=== PATIENT | male | born 1965 | race African-American/Black ===

== ENCOUNTER 2017-12-17 10:42 | Outpatient (CLI) | payer BC | END 2017-12-17 10:43 | disposition home or self-care (01) | LOC: BICULT 10:42 | PROVIDERS: ATTEND Internal Medicine Nephrology | DX: N18.3 Chronic kidney disease, stage 3 (moderate) (principal) | CPT/HCPCS: 76770 ==

== ENCOUNTER 2020-02-10 17:53 | Emergency (ER) | payer BC ==
[~2020-02-10 17:53] MED LIST: Iopamidol-370 76% 500 ML 1 ML ONE
[2020-02-10] MEDS ORDERED: Ondansetron PF 4 MG/2 ML Vial ONE (19:05)
[2020-02-10] MEDS ORDERED: Pantoprazole 40 MG VIAL ONE (19:05)
--- NOTE | 2020-02-10 19:12 | RAD ---
Exam: Chest one view HISTORY:Nausea. Vomiting. Comparison: 11/17/2006 FINDINGS: Cardiac silhouette: Normal Aorta: Unremarkable Pulmonary vessels: Normal Costophrenic angles: Clear LUNGS: No masses or consolidation. Pneumothorax: None Osseous abnormalities: None IMPRESSION: No acute cardiopulmonary process.
[2020-02-10 19:17] LABS: #Basophils 0.1 thou/uL (0.0-0.2); #Eosinphils 0.1 thou/uL (0.0-0.7); #Lymphocytes 1.8 thou/uL (1.20-3.40); #Monocytes 0.5 thou/uL (0.11-0.59); #Neutrophils 2.3 thou/uL (1.40-6.50); %Basophils 1.3 % (0.0-1.0); %Eosinophils 2.4 % (0.0-10.0); %Lymphocytes 37.5 % (21.0-51.0); %Neutrophils 47.9 % (42.0-75.0); Hemoglobin 12.3 g/dL (14.0-18.0); Mean Corpuscular HGB CONC 34.2 g/dL (32.0-36.0); Mean Corpuscular Hemoglobin 32.7 pg (27.0-31.0); Mean Corpuscular Volume 95.4 fL (78.0-98.0); Mean Platelet Volume 8.4 fL (7.4-10.4); Platelet Count 193 thou/uL (130-400); RBC Distribution Width 11.9 % (11.5-14.5); Red Blood Cell (RBC) Count 3.76 mill/uL (4.70-6.10); White Blood Cell (WBC) Count 4.9 thou/uL (4.8-10.8)
[2020-02-10 19:40] LABS: ALT (SGPT) 38 U/L (8-55); AST (SGOT) 75 U/L (5-34); Albumin 4.2 g/dL (3.5-5.0); Alcohol 45 mg/dL (Less than 10); Alkaline Phosphatase 44 U/L (40-110); Anion Gap 26 mmol/L (10-20); BUN (Urea Nitrogen) 11 mg/dL (8.4-25.7); Bilirubin, Total 0.8 mg/dL (0.2-1.2); CK (CPK) 342 U/L (30-200); Calc. Creatinine Clearance 0 mL/min (70-130); Calcium 9.5 mg/dL (7.8-10.44); Carbon Dioxide 18 mmol/L (22-29); Chloride 92 mmol/L (98-107); Estimated GFR-MDRD 53; Globulin 3.2 g/dL (2.4-3.5); Glucose 73 mg/dL (70-105); Lipase 206 U/L (8-78); Magnesium 1.6 mg/dL (1.6-2.6); Potassium 4.3 mmol/L (3.5-5.1); Protein, Total 7.4 g/dL (6.0-8.3); Sodium 132 mmol/L (136-145)
[2020-02-10 20:03] LABS: Bilirubin 1+ (Negative); Blood, Urine Negative (Negative); Clarity Clear (Clear); Glucose, Urine (Dipstick) Normal (Negative); Ketone, Urine 60 mg/dL (Negative); Leukocyte Negative Leu/uL (Negative); Nitrite Negative (Negative); Protein, Urine (Dipstick) 20 mg/dL (Neg-Trace); Specific Gravity, Urine 1.019 (1.002-1.036); Urobilinogen 3 mg/dL (Less than 2); pH, Urine 5.5 (5.0-9.0)
--- NOTE | 2020-02-10 20:26 | CT ---
EXAM: CT ABDOMEN AND PELVIS HISTORY: Vomiting. Pain. COMPARISON: None. Procedure: Multiple contiguous axial images were obtained and a CT of the abdomen and pelvis with IV contrast. C oronal reformats were performed. FINDINGS: Lower Chest: Scar and atelectasis, minimal Vessels: Normal caliber aorta. No periaortic fat stranding Heart: Normal heart size. No significant pericardial fluid Abdomen: Portal vein:Patent Gallbladder: No calcified gallstones. Normal caliber wall. Liver: Heterogeneous attenuation of the liver. There is hypoattenuation scattered throughout the hepa tic parenchyma with preservation of the vasculature suggesting areas of fatty infiltration. No enhancing liver masses. Pancreas: within normal limits. Spleen: within normal limits. Adrenals: within normal limits. Kidneys: Symmetric enhancement. No obstructive uropathy. Subcentimeter hypodensity in the lower pole of the left kidney is too small to further characterize. Peritoneum: No ascites or free air, no fluid collection. Bowel: Limited evaluation due to the lack of oral contrast administration. No evidence of bowel obstr uction. Ileocecal junction is unremarkable. Normal caliber appendix. Scattered fecal material in a nondistended, nondilated colon. Diverticulosis, without evidence of diverticulitis. Mesentery and Retroperitoneum: No enlarged mesenteric or retroperitoneal lymph nodes. Abdominal Wall: Small umbilical hernia containing mesenteric fat Pelvis: Reproductive Organs: Reproductive organs are unremarkable. Pelvis: No mass, lymphadenopathy, free air or free fluid. Bladder: within normal limits. Bones: No lytic or blastic lesions in the osseous structures. 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 IMPRESSION: 1. No acute abnormality in the abdomen or pelvis 2. Fatty infiltration of the liver with additional areas of fatty sparing.
== END 2020-02-10 22:09 | disposition home or self-care (01) ==
LOC: ERS 17:53
DX: K29.20 Alcoholic gastritis without bleeding (principal); E86.0 Dehydration; I10 Essential (primary) hypertension; Z79.899 Other long term (current) drug therapy
CPT/HCPCS: 36416; 71045; 74177; 80053; 80307; 81003; 82550; 83605; 83690; 83735; 84484; 85025; 93005; 96361; 96365; 96375; C9113; J2405; J3411; Q9967

== ENCOUNTER 2020-11-05 17:05 | Inpatient (IN) | payer BC ==
[2020-11-05] MEDS ORDERED: Fentanyl 100 MCG/2 ML VIAL ONE (17:34)
[2020-11-05] MEDS ORDERED: Ondansetron PF 4 MG/2 ML Vial ONE (17:34)
[2020-11-05] MEDS ORDERED: Piperacillin/Tazobactam 3.375 GM VIAL ONE (17:34)
[2020-11-05 17:44] LABS: #Basophils 0.1 thou/uL (0.0-0.2); #Eosinphils 0.1 thou/uL (0.0-0.7); #Lymphocytes 1.4 thou/uL (1.20-3.40); #Monocytes 0.8 thou/uL (0.11-0.59); #Neutrophils 7.3 thou/uL (1.40-6.50); %Basophils 0.6 % (0.0-1.0); %Eosinophils 1.2 % (0.0-10.0); %Lymphocytes 13.9 % (21.0-51.0); %Monocytes 8.3 % (0.0-10.0); Hemoglobin 11.8 g/dL (14.0-18.0); Mean Corpuscular HGB CONC 33.7 g/dL (32.0-36.0); Mean Corpuscular Hemoglobin 32.2 pg (27.0-31.0); Mean Corpuscular Volume 95.4 fL (78.0-98.0); Mean Platelet Volume 9.3 fL (7.4-10.4); Platelet Count 147 thou/uL (130-400); RBC Distribution Width 11.9 % (11.5-14.5); Red Blood Cell (RBC) Count 3.68 mill/uL (4.70-6.10); White Blood Cell (WBC) Count 9.7 thou/uL (4.8-10.8)
[2020-11-05 18:34] LABS: ALT (SGPT) 92 U/L (8-55); AST (SGOT) 261 U/L (5-34); Alkaline Phosphatase 131 U/L (40-110); Anion Gap 24 mmol/L (10-20); BUN (Urea Nitrogen) 19 mg/dL (8.4-25.7); Bilirubin, Total 1.3 mg/dL (0.2-1.2); Calc. Creatinine Clearance 0 mL/min (70-130); Carbon Dioxide 23 mmol/L (22-29); Chloride 93 mmol/L (98-107); Globulin 3.4 g/dL (2.4-3.5); Glucose 92 mg/dL (70-105); Magnesium 1.6 mg/dL (1.6-2.6); Potassium 4.3 mmol/L (3.5-5.1); Protein, Total 7.4 g/dL (6.0-8.3); Sodium 136 mmol/L (136-145)
[2020-11-05 18:47] LABS: Lipase 1447 U/L (8-78)
[2020-11-05] MEDS ORDERED: Ketorolac Tromethamine 30 MG/ML VIAL IVP PRN (20:38)
[2020-11-05] MEDS ORDERED: Morphine 4 MG/ML VIAL SLOW IVP PRN (20:38)
[2020-11-05] MEDS ORDERED: Ondansetron ODT 4 MG TAB PO PRN (20:39)
[2020-11-05] MEDS ORDERED: HYDROcodone/Acetaminophen 5/325 mg Tablet PO PRN (20:39)
[2020-11-05] MEDS ORDERED: Ondansetron PF 4 MG/2 ML Vial IVP PRN (20:39)
[2020-11-05] MEDS ORDERED: Acetaminophen 325 MG TAB PO PRN (20:39)
[2020-11-05] MEDS: Sodium Chloride 0.9% 1,000 ML IV SCH (22:36)
[2020-11-05] MEDS: Melatonin 3 MG TAB PO PRN (22:36)
[2020-11-05] MEDS: Heparin 5,000 UNITS/ML VIAL SC SCH (22:36)
[2020-11-05 22:57] VITALS: BMI 29.9
[2020-11-06 01:29] LABS: SARS-CoV-2 NAA Rapid Test Not Detected (NotDetected)
[2020-11-06] MEDS: Sodium Chloride 0.9% 1,000 ML IV SCH ×5 (02:06→21:38)
[2020-11-06 06:16] LABS: #Basophils 0.1 thou/uL (0.0-0.2); #Eosinphils 0.1 thou/uL (0.0-0.7); #Lymphocytes 1.6 thou/uL (1.20-3.40); #Monocytes 0.8 thou/uL (0.11-0.59); %Basophils 0.8 % (0.0-1.0); %Eosinophils 0.8 % (0.0-10.0); %Lymphocytes 21.6 % (21.0-51.0); %Neutrophils 66.9 % (42.0-75.0); Hemoglobin 10.1 g/dL (14.0-18.0); Mean Corpuscular HGB CONC 33.6 g/dL (32.0-36.0); Mean Corpuscular Hemoglobin 32.5 pg (27.0-31.0); Mean Corpuscular Volume 96.9 fL (78.0-98.0); Mean Platelet Volume 8.6 fL (7.4-10.4); Platelet Count 131 thou/uL (130-400); Red Blood Cell (RBC) Count 3.11 mill/uL (4.70-6.10); White Blood Cell (WBC) Count 7.5 thou/uL (4.8-10.8)
[2020-11-06 06:42] LABS: Iron 19 ug/dL (65-175); Iron Binding Capacity, Total 190 mcg/dL (261-462)
[2020-11-06 06:46] LABS: Anion Gap 20 mmol/L (10-20); BUN (Urea Nitrogen) 18 mg/dL (8.4-25.7); Calc. Creatinine Clearance 30 mL/min (70-130); Calcium 8.4 mg/dL (7.8-10.44); Carbon Dioxide 20 mmol/L (22-29); Chloride 101 mmol/L (98-107); Glucose 76 mg/dL (70-105); Iron 18 ug/dL (65-175); Iron Binding Capacity, Total 193 mcg/dL (261-462); Potassium 3.9 mmol/L (3.5-5.1); Sodium 137 mmol/L (136-145)
[2020-11-06] MEDS: Heparin 5,000 UNITS/ML VIAL SC SCH ×3 (09:45→21:23)
[2020-11-06 09:50] LABS: Bacteria/HPF Rare-Few HPF (None Seen); Bilirubin Negative (Negative); Blood, Urine Trace (Negative); Clarity Clear (Clear); Glucose, Urine (Dipstick) 30 mg/dL (Negative); Ketone, Urine 40 mg/dL (Negative); Leukocyte Negative Leu/uL (Negative); Nitrite Negative (Negative); Protein, Urine (Dipstick) 30 mg/dL (Neg-Trace); RBC/HPF 0-3 HPF (0-3); Specific Gravity, Urine 1.012 (1.002-1.036); Squamous Epithelial None Seen HPF (0-3); Urobilinogen Normal mg/dL (Less than 2); WBC/HPF 0-3 HPF (0-3); pH, Urine 5.5 (5.0-9.0)
[2020-11-06 10:43] LABS: #Basophils 0.1 thou/uL (0.0-0.2); #Eosinphils 0.1 thou/uL (0.0-0.7); #Lymphocytes 1.3 thou/uL (1.20-3.40); #Monocytes 0.8 thou/uL (0.11-0.59); #Neutrophils 4.2 thou/uL (1.40-6.50); %Basophils 1.1 % (0.0-1.0); %Eosinophils 1.3 % (0.0-10.0); %Lymphocytes 19.5 % (21.0-51.0); %Monocytes 12.3 % (0.0-10.0); %Neutrophils 65.7 % (42.0-75.0); Hemoglobin 10.2 g/dL (14.0-18.0); Mean Corpuscular HGB CONC 33.3 g/dL (32.0-36.0); Mean Corpuscular Hemoglobin 32.3 pg (27.0-31.0); Mean Platelet Volume 8.6 fL (7.4-10.4); Platelet Count 146 thou/uL (130-400); RBC Distribution Width 11.9 % (11.5-14.5); Red Blood Cell (RBC) Count 3.17 mill/uL (4.70-6.10); White Blood Cell (WBC) Count 6.4 thou/uL (4.8-10.8)
[2020-11-06] MEDS: Melatonin 3 MG TAB PO PRN (21:22)
[2020-11-07] MEDS: Sodium Chloride 0.9% 1,000 ML IV SCH ×3 (02:59→13:02)
[2020-11-07 07:03] LABS: Anion Gap 14 mmol/L (10-20); BUN (Urea Nitrogen) 10 mg/dL (8.4-25.7); Calc. Creatinine Clearance 57 mL/min (70-130); Calcium 8.5 mg/dL (7.8-10.44); Carbon Dioxide 26 mmol/L (22-29); Chloride 105 mmol/L (98-107); Glucose 89 mg/dL (70-105); Lipase 816 U/L (8-78); Potassium 3.6 mmol/L (3.5-5.1); Sodium 141 mmol/L (136-145)
[2020-11-07 07:05] LABS: ALT (SGPT) 97 U/L (8-55); AST (SGOT) 239 U/L (5-34); Albumin 3.2 g/dL (3.5-5.0); Alkaline Phosphatase 239 U/L (40-110); Bilirubin, Total 1.2 mg/dL (0.2-1.2); Protein, Total 5.8 g/dL (6.0-8.3); Triglycerides 71 mg/dL (Less than 150)
[2020-11-07] MEDS: Heparin 5,000 UNITS/ML VIAL SC SCH (09:29)
[2020-11-07 12:17] VITALS: BP 158/92; TEMP 98.4
== END 2020-11-07 15:21 | disposition home or self-care (01) | DRG 682 ==
LOC: ERS 17:05 → T4-B 20:05
PROVIDERS: ADMIT Student in an Organized Health Care Education/Training Program; ATTEND Internal Medicine
DX: N17.9 Acute kidney failure, unspecified (principal); K85.20 Alcohol induced acute pancreatitis without necrosis or infection; Z20.822 Contact with and (suspected) exposure to COVID-19; I10 Essential (primary) hypertension; F10.20 Alcohol dependence, uncomplicated; H66.90 Otitis media, unspecified, unspecified ear; E86.0 Dehydration; D64.9 Anemia, unspecified; K21.9 Gastro-esophageal reflux disease without esophagitis; K70.10 Alcoholic hepatitis without ascites; Z91.041 Radiographic dye allergy status; Z79.899 Other long term (current) drug therapy; Z91.013 Allergy to seafood
CPT/HCPCS: 36415; 74176; 76705; 80048; 80053; 80076; 81001; 82728; 83540; 83550; 83605; 83690; 83735; 84478; 85025; 87040; 96365; 96366; 96375; J1644; J2270; J2405; J2543; J3010; U0002; U0003; U0005